=== PATIENT | female | born 1995 | race Hispanic/Latino ===

== ENCOUNTER 2017-02-10 09:04 | Emergency (ER) | payer SELFPAY ==
[2017-02-10] MEDS ORDERED: Ondansetron ODT 4 MG TAB ONE (09:25)
[2017-02-10 09:40] LABS: Bilirubin Negative (Negative); Blood, Urine Negative (Negative); Clarity CLOUDY (Clear); Glucose, Urine (Dipstick) Negative (Negative); Leukocyte Negative (Negative); Nitrite Negative (Negative); Protein, Urine (Dipstick) Negative (Neg-Trace); Specific Gravity, Urine 1.028 (1.002-1.036); Urobilinogen 0.2 mg/dL (0.2-1.0); pH, Urine 6.5 (5.0-9.0)
[2017-02-10 09:43] LABS: Pregnancy Test - Urine (BHCG) Negative (Negative); Pregu Control Background? CLEAR/WHITE (CLR/WHITE); Pregu Control Bar Appear? YES (CONTROL BAR); Specific Gravity 1.028 (1.002-1.036)
== END 2017-02-10 10:19 | disposition home or self-care (01) ==
LOC: ERS 09:04
DX: R19.7 Diarrhea, unspecified (principal); J45.909 Unspecified asthma, uncomplicated
CPT/HCPCS: 81003; 81025; 99284; Q0162

== ENCOUNTER 2017-02-12 06:41 | Emergency (ER) | payer SELFPAY ==
[2017-02-12 07:08] LABS: Bilirubin Negative (Negative); Blood, Urine Large (Negative); Clarity TURBID (Clear); Glucose, Urine (Dipstick) Negative (Negative); Leukocyte Moderate (Negative); Nitrite Negative (Negative); Protein, Urine (Dipstick) 300 mg/dL (Neg-Trace)
[2017-02-12 07:09] LABS: Bacteria/HPF None Seen HPF (None Seen); Hyaline Casts/LPF 4-6 HYALINE CAST LPF (0-3 Hyaline); Pathc Cast-AUWi Flag 1.68 (0-2.49); RBC/HPF GREATER THAN 50-TNTC HPF (0-3); Squamous Epithelial 0-3 HPF (0-3)
[2017-02-12 07:11] LABS: Pregnancy Test - Urine (BHCG) Negative (Negative)
[2017-02-12 07:12] LABS: Pregu Control Background? CLEAR/WHITE (CLR/WHITE); Pregu Control Bar Appear? YES (CONTROL BAR)
[2017-02-12] MEDS ORDERED: Phenazopyridine HCl 97.5 MG TABLET ONE (07:46)
[2017-02-12] MEDS ORDERED: Phenazopyridine HCl 97.5 MG TABLET PO SCH (08:00)
== END 2017-02-12 07:59 | disposition home or self-care (01) ==
LOC: ERS 06:41
DX: N39.0 Urinary tract infection, site not specified (principal); J45.909 Unspecified asthma, uncomplicated
CPT/HCPCS: 81003; 81015; 81025; 99284

== ENCOUNTER 2017-06-18 10:09 | Emergency (ER) | payer OTHER, SELFPAY ==
[2017-06-18 10:43] LABS: Bilirubin Negative (Negative); Blood, Urine Negative (Negative); Clarity CLEAR (Clear); Glucose, Urine (Dipstick) Negative (Negative); Leukocyte Negative (Negative); Nitrite Negative (Negative); Protein, Urine (Dipstick) Negative (Neg-Trace)
[2017-06-18 10:48] LABS: Pregnancy Test - Urine (BHCG) POSITIVE (Negative); Pregu Control Background? CLEAR/WHITE (CLR/WHITE); Pregu Control Bar Appear? YES (CONTROL BAR)
[2017-06-18 12:36] LABS: #Eosinphils 0.1 thou/uL (0.0-0.7); #Monocytes 0.6 thou/uL (0.11-0.59); #Neutrophils 5.8 thou/uL (1.40-6.50); %Basophils 0.4 % (0.0-1.0); %Lymphocytes 23.5 % (21.0-51.0); %Monocytes 7.3 % (0.0-10.0); %Neutrophils 67.8 % (42.0-75.0); Hemoglobin 12.3 g/dL (12.0-16.0); Mean Corpuscular HGB CONC 33.7 g/dL (32.0-36.0); Mean Corpuscular Hemoglobin 30.2 pg (27.0-31.0); Mean Corpuscular Volume 89.4 fl (81.0-99.0); Mean Platelet Volume 8.5 fL (7.4-10.4); Platelet Count 296 thou/uL (130-400); RBC Distribution Width 11.3 % (11.5-14.5); Red Blood Cell (RBC) Count 4.08 mill/uL (4.20-5.40); White Blood Cell (WBC) Count 8.6 thou/uL (4.8-10.8)
--- NOTE | 2017-06-18 13:29 | ULT ---
PELVIC ULTRASOUND: History Evaluate for ectopic . COMPARISON: None. TECHNIQUE: Transabdominal and endovaginal imaging of the pelvis is performed. Ovaries are interrogated with gra y scale, color flow, Doppler imaging, and spectral waveform analysis. FINDINGS: Uterus is identified, without myometrial masses. The uterus measures 5.0 x 6.0 x 7.9 cm. Within the endometrium, there is a gestational sac. Possible yolk sac is noted. No definite pole. Mean sac diameter is 1.04 cm corresponding to gestational age of 5 weeks 5 days. There is no evidence of free fluid. OVARIAN DOPPLER: Right and left ovary have a normal echotexture. The left ovary measures 2.9 x 1.8 x 1.3 cm. The rig ht ovary measures 2.2 x 2.9 x 2.1 cm. OVARIAN DOPPLER: Vascular flow to both ovaries. IMPRESSION: Gestational sac is noted within the endometrium. Yolk sac is identified. Findings likely represent an early intrauterine . Followup ultrasound and serial beta HCGs are recommended POS: [facility]
[2017-06-20 00:51] LABS: Chlamydia by PCR Not Detected (NotDetected); GC by PCR Not Detected (NotDetected)
== END 2017-06-18 14:10 | disposition home or self-care (01) ==
LOC: ERS 10:09
DX: O98.811 Other maternal infectious and parasitic diseases complicating pregnancy, first trimester (principal); B37.3 Candidiasis of vulva and vagina; O99.511 Diseases of the respiratory system complicating pregnancy, first trimester; J45.909 Unspecified asthma, uncomplicated; Z3A.01 Less than 8 weeks gestation of pregnancy
CPT/HCPCS: 36415; 76856; 81003; 81025; 84702; 85025; 86900; 86901; 87480; 87491; 87510; 87591; 87660

== ENCOUNTER 2017-07-04 19:21 | Emergency (ER) | payer MEDICAID, SELFPAY ==
[2017-07-04 19:48] LABS: #Basophils 0.1 thou/uL (0.0-0.2); #Eosinphils 0.2 thou/uL (0.0-0.7); #Lymphocytes 2.8 thou/uL (1.20-3.40); #Monocytes 0.8 thou/uL (0.11-0.59); #Neutrophils 6.7 thou/uL (1.40-6.50); %Basophils 0.7 % (0.0-1.0); %Eosinophils 2.1 % (0.0-10.0); %Lymphocytes 26.7 % (21.0-51.0); %Monocytes 7.2 % (0.0-10.0); %Neutrophils 63.3 % (42.0-75.0); Hemoglobin 11.9 g/dL (12.0-16.0); Mean Corpuscular HGB CONC 34.8 g/dL (32.0-36.0); Mean Corpuscular Hemoglobin 30.8 pg (27.0-31.0); Mean Corpuscular Volume 88.5 fl (81.0-99.0); Mean Platelet Volume 8.2 fL (7.4-10.4); Platelet Count 264 thou/uL (130-400); Red Blood Cell (RBC) Count 3.86 mill/uL (4.20-5.40); White Blood Cell (WBC) Count 10.6 thou/uL (4.8-10.8)
[2017-07-04 19:51] LABS: Acanthocytes SLIGHT = 1-5 cells (100X) (None Seen); Anisocytosis SLIGHT = 6-15 cells (100X) (0-5/hpf); Ovalocytes SLIGHT = 2-5 cells (100X) (0-1/hpf); Target Cells SLIGHT = 2-5 cells (100X) (0-1/hpf); Tear Drops SLIGHT = 2-5 cells (100X) (0-1/hpf)
--- NOTE | 2017-07-04 20:39 | ULT ---
TRANSVAGINAL PELVIC ULTRASOUND WITH FREED SCALE AND DOPPLER COLOR FLOW IMAGING: CLINICAL HISTORY: Intrauterine gestation with vaginal discharge. Pelvic pain. COMPARISON: Reference made to a 06/18/2017 exam. FINDINGS: There is evidence of a gestational sac with an internal pole and yolk sac. On the basis of son ographic imaging, this corresponds to an approximately 8 week 2 day gestational age. cardiac a ctivity is present, documented at 163 beats per minute. There is a wedge-shaped focus of decreased e chogenicity adjacent to the gestational sac, which is compatible with a focal area of subchorionic he morrhage. Doppler evaluation reveals flow to each ovary. IMPRESSION: 1. Early live intrauterine gestation. 2. Subchorionic hemorrhage is present. Recommend continued imaging followup, as well as clinical assessment. POS: [facility]
[2017-07-04 21:27] LABS: Bilirubin Negative (Negative); Blood, Urine Negative (Negative); Clarity CLEAR (Clear); Glucose, Urine (Dipstick) Negative (Negative); Leukocyte Negative (Negative); Nitrite Negative (Negative); Protein, Urine (Dipstick) Negative (Neg-Trace); Specific Gravity, Urine 1.021 (1.002-1.036)
[2017-07-06 04:22] LABS: Chlamydia by PCR Not Detected (NotDetected); GC by PCR Not Detected (NotDetected)
== END 2017-07-05 03:35 | disposition home or self-care (01) ==
LOC: ERS 19:21
DX: O20.0 Threatened abortion (principal); O99.511 Diseases of the respiratory system complicating pregnancy, first trimester; J45.909 Unspecified asthma, uncomplicated; Z3A.01 Less than 8 weeks gestation of pregnancy
CPT/HCPCS: 36415; 76856; 81003; 84702; 85025; 86900; 86901; 87480; 87491; 87510; 87591; 87660; 90384; 96372

== ENCOUNTER 2017-09-02 10:00 | Emergency (ER) | payer MEDICAID, OTHER ==
[2017-09-02 10:42] LABS: Bilirubin Negative (Negative); Blood, Urine Negative (Negative); Clarity CLEAR (Clear); Glucose, Urine (Dipstick) Negative (Negative); Leukocyte Negative (Negative); Nitrite Negative (Negative); Protein, Urine (Dipstick) Negative (Neg-Trace); Specific Gravity, Urine 1.018 (1.002-1.036); pH, Urine 7.5 (5.0-9.0)
[2017-09-02 11:09] LABS: #Eosinphils 0.1 thou/uL (0.0-0.7); #Lymphocytes 1.3 thou/uL (1.20-3.40); #Monocytes 0.6 thou/uL (0.11-0.59); #Neutrophils 10.2 thou/uL (1.40-6.50); %Basophils 0.1 % (0.0-1.0); %Eosinophils 0.5 % (0.0-10.0); %Lymphocytes 10.7 % (21.0-51.0); %Neutrophils 83.8 % (42.0-75.0); Hemoglobin 12.1 g/dL (12.0-16.0); Mean Corpuscular HGB CONC 34.7 g/dL (32.0-36.0); Mean Corpuscular Hemoglobin 30.8 pg (27.0-31.0); Mean Corpuscular Volume 88.7 fL (78.0-98.0); Mean Platelet Volume 8.3 fL (7.4-10.4); Platelet Count 251 thou/uL (130-400); RBC Distribution Width 11.7 % (11.5-14.5); Red Blood Cell (RBC) Count 3.94 mill/uL (4.20-5.40); White Blood Cell (WBC) Count 12.2 thou/uL (4.8-10.8)
--- NOTE | 2017-09-02 11:52 | ULT ---
ULTRASOUND OBSTETRICAL COMPLETE: Date: 09/02/17 HISTORY: 21-year-old female with abdominal pain. FINDINGS: number: Trevino. lie: Cephalic. Maternal cervix: 3.5 cm long and closed. Placenta: Posterofundal. No abruption or previa. There is a focal bulge in the anterior myometrium indenting the gestational sac. Amniotic fluid volume: Subjectively normal. heart rate: 141 bpm The following anatomy is visualized, with no evidence of anomalies: Head, four chamber heart, stomach, kidneys, cord insertion, and bladder. The rest of the anatomy is not visualized in detail. biometry: Head circumference (HC): 14.6 cm 17w 5d Biparietal diameter (BPD): 4.0 cm 18w 1d Abdominal circumference (AC): 12.9 cm 18w 3d Femur length (FL): 2.6 cm 17w 5d Average ultrasound age (AUA): 17w 5d Estimated date of delivery (CRIS): 02/05/18 Last menstrual period (LMP): 05/05/2017. Gestational age by LMP: 17w, 1d. Estimated weight (EFW): 223 g +/- 33 g. IMPRESSION: 1. Live second trimester intrauterine gestation. 2. Estimated gestational age of 17 weeks, 5 days. 3. Cephalic lie. 4. Focal bulge in the anterior myometrium. This may be a Lev-Story contraction. It is less likely to represent a uterine fibroid. Suggest follow-up obstetrical ultrasound later in the second trimest er. SHARIF Funez POS: [facility]
== END 2017-09-02 12:40 | disposition home or self-care (01) ==
LOC: ERS 10:00
DX: O99.89 Other specified diseases and conditions complicating pregnancy, childbirth and the puerperium (principal); R10.9 Unspecified abdominal pain; Z3A.17 17 weeks gestation of pregnancy
CPT/HCPCS: 36415; 76815; 81003; 84702; 85025; 86900; 86901; 87480; 87510; 87660

== ENCOUNTER 2017-09-29 02:13 | Day surgery (SDC) | payer OTHER ==
[2017-09-29 02:43] VITALS: BMI 30.9
[2017-09-29 02:44] VITALS: BP 114/61; TEMP 98.5
--- NOTE | 2017-09-29 03:23 | PDOC.LDHP ---
Labor and Delivery H&P Chief complaint: other (UTI symptoms and abdominal pressure) HPI: 21 y/o at 21w0d, patient of Dr. Olson, presents with abdominal pressure , urinary urgency and dysuria. Is being treated for BV with Flagyl. Having spotting today but denies heavy bleeding. Has had some constant low back pain today. Denies LOF or decreased FM. ROS neg for HEENT, cv, pulm, gi, gu, neuro, psych, skin, musculoskeletal, or constitutional symptoms other than mentioned above. 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.) Extremeties: no edema FHT: category 1 (140s) [place] contractions every: None - Vaginal Exam cm dilated: 0 (thick, firm; no blood noted on glove) Effacement: 0% Station: -3 - OB Labs Blood type: O RH: negative Additional Labs: Laboratory Results - last 24 hr 09/29/17 03:05 Urine Color Red H Urine Clarity TURBID Urine pH 6.5 Ur Specific [place] 1.023 Urine Protein 300 H Urine Glucose (UA) Negative Urine Ketones Trace H Urine Blood Large H Urine Nitrite Negative Urine Bilirubin Negative Urine Urobilinogen 0.2 Ur Leukocyte Esterase Large H Urine RBC GREATER THAN 50-TNTC H Urine WBC Greater Than 50-TNTC H Ur Squamous Epith Cells 7-10 H Ur Transition Epith Cell NONE SEEN Ur Renal Epithelial Cell None Seen Urine Bacteria None Seen Hyaline Casts >50 HYALINE CAST H Other Casts None Seen - Assessment 21 y/o at 21w0d with UTI. status reassuring with +FHTs. - Plan -: D/c home with precautions. Given Rx for macrobid. Advised to keep all appointments and call clinic if symptoms don't improve.
[2017-09-29 03:29] LABS: Bilirubin Negative (Negative); Blood, Urine Large (Negative); Clarity TURBID (Clear); Glucose, Urine (Dipstick) Negative (Negative); Leukocyte Large (Negative); Nitrite Negative (Negative); Protein, Urine (Dipstick) 300 mg/dL (Neg-Trace); Specific Gravity, Urine 1.023 (1.002-1.036); Urobilinogen 0.2 mg/dL (0.2-1.0); pH, Urine 6.5 (5.0-9.0)
[2017-09-29 03:32] LABS: Bacteria/HPF None Seen HPF (None Seen)
[2017-09-29 03:39] LABS: Hyaline Casts/LPF >50 HYALINE CAST LPF (0-3 Hyaline)
[2017-09-29 03:40] LABS: Pathc Cast-AUWi Flag 42.92 (0-2.49); Yeast-AUWi Flag 266.5 (0-25.0)
[2017-09-29 03:50] LABS: RBC/HPF GREATER THAN 50-TNTC HPF (0-3)
[2017-09-29 03:51] LABS: Other Casts/LPF None Seen LPF (0-3 Hyaline); Renal Epithelial None Seen HPF (0-3); Transitional Epithelial NONE SEEN HPF (0-3)
== END 2017-09-29 04:11 | disposition home or self-care (01) ==
LOC: L&D/OP 02:13
PROVIDERS: ATTEND Obstetrics & Gynecology
DX: O23.42 Unspecified infection of urinary tract in pregnancy, second trimester (principal); Z3A.21 21 weeks gestation of pregnancy
CPT/HCPCS: 81001; 87077; 87086; 99283

== ENCOUNTER 2017-11-10 13:39 | Emergency (ER) | payer OTHER ==
[2017-11-10] MEDS ORDERED: Fluorescein Opthalmic Strip ONE (14:55)
[2017-11-10] MEDS ORDERED: Proparacaine 0.5% Opth 15 ML BOT ONE (14:55)
== END 2017-11-10 15:55 | disposition home or self-care (01) ==
LOC: ERS 13:39
DX: B30.9 Viral conjunctivitis, unspecified (principal); J45.909 Unspecified asthma, uncomplicated
CPT/HCPCS: 99283

== ENCOUNTER 2018-02-02 00:09 | Inpatient (IN) | payer OTHER ==
[2018-02-02] MEDS ORDERED: Butorphanol Tartrate 1 MG/ML VIAL SLOW IVP PRN (00:51)
[2018-02-02] MEDS ORDERED: Ibuprofen 800 MG TAB PO PRN (00:51)
[2018-02-02] MEDS ORDERED: NS w/ Oxytocin 10 units 500 ML IV SCH (00:51)
[2018-02-02] MEDS ORDERED: Acetaminophen 500 MG TAB PO PRN (00:51)
[2018-02-02] MEDS ORDERED: Docusate 100 MG CAP PO PRN (00:51)
[2018-02-02] MEDS ORDERED: Misoprostol 200 MCG TAB PR PRN (00:51)
[2018-02-02] MEDS ORDERED: Promethazine HCl 25 MG/ML VIAL IM PRN ×2 (00:51→07:52)
[2018-02-02] MEDS ORDERED: Diphenoxylate HCl/Atropine Tablet PO PRN ×2 (00:51)
[2018-02-02] MEDS ORDERED: Lidocaine 1% (PF) 30 ML VIAL SC PRN (00:51)
[2018-02-02] MEDS ORDERED: Zolpidem Tartrate 5 MG TAB PO PRN (00:51)
[2018-02-02] MEDS ORDERED: Ondansetron PF 4 MG/2 ML Vial IVP PRN ×2 (00:51→07:52)
[2018-02-02] MEDS ORDERED: HYDROcodone/Acetaminophen 5/325 mg Tablet PO PRN (00:51)
[2018-02-02 01:11] VITALS: BMI 33.9
[2018-02-02] MEDS: Lactated Ringer's 1,000 ML IV SCH ×3 (01:15→17:03)
[2018-02-02] MEDS ORDERED: Penicillin G Potassium 5 MILL.UNITS VIAL ONE (01:33)
[2018-02-02] MEDS ORDERED: Penicillin G Potassium 5 MILL.UNITS in Sodium Chloride 0.9% 100 ML IVPB SCH (01:45)
[2018-02-02] MEDS: Misoprostol 100 MCG TAB VAG SCH ×4 (01:50→23:44)
[2018-02-02 01:56] LABS: Hemoglobin 10.6 g/dL (12.0-16.0); Mean Corpuscular HGB CONC 34.1 g/dL (32.0-36.0); Mean Corpuscular Hemoglobin 28.7 pg (27.0-31.0); Mean Corpuscular Volume 84.1 fL (78.0-98.0); Mean Platelet Volume 8.4 fL (7.4-10.4); Platelet Count 296 thou/uL (130-400); RBC Distribution Width 12.2 % (11.5-14.5); White Blood Cell (WBC) Count 10.6 thou/uL (4.8-10.8)
[2018-02-02 02:05] LABS: HBSAg Index 0.22 S/CO (0-0.99); Hep B Surf Ag Non-Reactive S/CO (NonReactive)
[2018-02-02] MEDS: Penicillin G 2.5 MILL.units 2.5 MILL.UNITS in Premix Bag 1 BAG IVPB SCH ×4 (05:44→23:44)
[2018-02-02] MEDS ORDERED: Fentanyl 4 mcg/Bup 0.1% Cadd 100 ML ONE ×2 (07:11→07:12)
[2018-02-02 07:27] LABS: Syphilis Antibody Nonreactive (Nonreactive); Syphilis Antibody Index 0.08 S/CO (<1.00 Non-Reactive)
[2018-02-02] MEDS ORDERED: Naloxone HCl 0.4 mg/ml Vial IVP PRN ×2 (07:52)
[2018-02-02] MEDS ORDERED: Eucerin (Mineral Oil/Petrolatum,White) 30 gm Jar TOP PRN (07:52)
[2018-02-02] MEDS ORDERED: Lactated Ringer's 500 ML IV PRN (07:52)
[2018-02-02] MEDS ORDERED: Acetaminophen 325 MG TAB PO PRN (07:52)
[2018-02-02] MEDS ORDERED: ePHEDrine/0.9% NaCl/PF SYRINGE 50 mg/10 ml SLOW IVP PRN (07:52)
[2018-02-02] MEDS ORDERED: diphenhydrAMINE 50 MG/ML VIAL IVP PRN (07:52)
[2018-02-02] MEDS ORDERED: Fentanyl 4 mcg/Bupivacaine 0.1% Cassette 100 ML EPIDURAL SCH (08:00)
[2018-02-02] MEDS ORDERED: Communication Order-Pharmacy FS SCH (08:00)
[2018-02-02] MEDS: NS / Oxytocin 40 units/1000ml 1,000 ML IV PRN ×2 (12:50→14:07)
[2018-02-02] MEDS ORDERED: Bupivacaine/Epinephrine 0.25% 30 ML VIAL ONE (15:00)
[2018-02-02] MEDS ORDERED: Bisacodyl 10 MG SUPP PR PRN (19:30)
[2018-02-02] MEDS ORDERED: NS / Oxytocin 40 units/1000ml 1,000 ML IV SCH (19:30)
[2018-02-02] MEDS ORDERED: Milk Of Magnesia 30 ML UDCUP PO PRN (19:30)
[2018-02-02] MEDS ORDERED: Acetaminophen/Codeine 30-300mg Tablet PO PRN (20:00)
[2018-02-02] MEDS: Acetaminophen/Codeine 30-300mg Tablet PO PRN (20:03)
[2018-02-02] MEDS: Docusate Calcium (SURFAK) 240 MG CAP PO SCH (20:04)
[2018-02-02] MEDS: Ibuprofen 800 MG TAB PO SCH (21:27)
[2018-02-02] MEDS ORDERED: Morphine 2 MG/ML SYRINGE SLOW IVP PRN (22:49)
[2018-02-02] MEDS: Adacel (T-DAP) 0.5 ML SYRINGE IM SCH (23:47)
[2018-02-03] MEDS: Misoprostol 100 MCG TAB VAG SCH ×3 (03:52→09:30)
[2018-02-03] MEDS: Lactated Ringer's 1,000 ML IV SCH ×3 (03:52→16:58)
[2018-02-03] MEDS: Penicillin G 2.5 MILL.units 2.5 MILL.UNITS in Premix Bag 1 BAG IVPB SCH ×4 (03:53→23:45)
[2018-02-03] MEDS: Ibuprofen 800 MG TAB PO SCH ×3 (05:05→21:36)
[2018-02-03] MEDS: Ferrous Sulfate 325 MG TAB PO SCH ×2 (09:30→16:58)
[2018-02-03] MEDS: Acetaminophen/Codeine 30-300mg Tablet PO PRN (09:54)
[2018-02-03] MEDS: Docusate Calcium (SURFAK) 240 MG CAP PO SCH ×2 (09:55→21:36)
[2018-02-03] MEDS: Adacel (T-DAP) 0.5 ML SYRINGE IM SCH (17:00)
[2018-02-04] MEDS: Acetaminophen/Codeine 30-300mg Tablet PO PRN ×2 (01:56→12:55)
[2018-02-04] MEDS: Lactated Ringer's 1,000 ML IV SCH ×2 (06:27→09:09)
[2018-02-04] MEDS: Penicillin G 2.5 MILL.units 2.5 MILL.UNITS in Premix Bag 1 BAG IVPB SCH ×2 (06:27→12:54)
[2018-02-04] MEDS: Ibuprofen 800 MG TAB PO SCH ×2 (07:40→14:03)
[2018-02-04] MEDS: Misoprostol 100 MCG TAB VAG SCH ×3 (07:41→12:54)
[2018-02-04] MEDS: Docusate Calcium (SURFAK) 240 MG CAP PO SCH (09:08)
[2018-02-04] MEDS: Ferrous Sulfate 325 MG TAB PO SCH (09:09)
[2018-02-04 09:41] VITALS: BP 110/57; TEMP 97.7
== END 2018-02-04 14:30 | disposition home or self-care (01) | DRG 807 ==
LOC: L&D 00:09 → 3SW 15:47
PROVIDERS: ADMIT Obstetrics & Gynecology; ATTEND Obstetrics & Gynecology
PROC: 3E0P7VZ Introduction of Hormone into Female Reproductive, Via Natural or Artificial Opening (ICD-10-PCS; principal; 2018-02-02)
PROC: 10E0XZZ Delivery of Products of Conception, External Approach (ICD-10-PCS; 2018-02-02)
PROC: 0UQMXZZ Repair Vulva, External Approach (ICD-10-PCS; 2018-02-02)
DX: O98.82 Other maternal infectious and parasitic diseases complicating childbirth (principal); Z37.0 Single live birth; O24.429 Gestational diabetes mellitus in childbirth, unspecified control; B95.1 Streptococcus, group B, as the cause of diseases classified elsewhere; Z3A.39 39 weeks gestation of pregnancy; O71.82 Other specified trauma to perineum and vulva
CPT/HCPCS: 51702; 85027; 86780; 86850; 86900; 86901; 87340; J2270; J2540

== ENCOUNTER 2018-02-05 20:40 | Inpatient (IN) | payer OTHER ==
[2018-02-05 22:00] LABS: #Eosinphils 0.3 thou/uL (0.0-0.7); #Lymphocytes 1.8 thou/uL (1.20-3.40); #Monocytes 0.6 thou/uL (0.11-0.59); #Neutrophils 6.9 thou/uL (1.40-6.50); %Basophils 0.4 % (0.0-1.0); %Eosinophils 3.1 % (0.0-10.0); %Lymphocytes 18.6 % (21.0-51.0); %Monocytes 6.4 % (0.0-10.0); %Neutrophils 71.6 % (42.0-75.0); Hemoglobin 10.9 g/dL (12.0-16.0); Mean Corpuscular HGB CONC 33.9 g/dL (32.0-36.0); Mean Corpuscular Hemoglobin 28.8 pg (27.0-31.0); Mean Corpuscular Volume 85.1 fL (78.0-98.0); Mean Platelet Volume 7.8 fL (7.4-10.4); Platelet Count 299 thou/uL (130-400); RBC Distribution Width 12.3 % (11.5-14.5); Red Blood Cell (RBC) Count 3.78 mill/uL (4.20-5.40); White Blood Cell (WBC) Count 9.7 thou/uL (4.8-10.8)
[2018-02-05 22:20] LABS: ALT (SGPT) 23 U/L (8-55); AST (SGOT) 19 U/L (5-34); Albumin 3.1 g/dL (3.5-5.0); Alkaline Phosphatase 138 U/L (40-150); Anion Gap 12 mmol/L (10-20); BUN (Urea Nitrogen) 10 mg/dL (7.0-18.7); Bilirubin, Total 0.3 mg/dL (0.2-1.2); Calc. Creatinine Clearance 0 mL/min (70-130); Calcium 8.9 mg/dL (7.8-10.44); Carbon Dioxide 21 mmol/L (22-29); Chloride 107 mmol/L (98-107); Estimated GFR-MDRD Greater than 90; Globulin 3.4 g/dL (2.4-3.5); Glucose 87 mg/dL (70-105); Magnesium 1.8 mg/dL (1.6-2.6); Potassium 3.4 mmol/L (3.5-5.1); Protein, Total 6.5 g/dL (6.0-8.3); Sodium 137 mmol/L (136-145); Uric Acid 3.4 mg/dL (2.6-6.0)
[2018-02-05] MEDS ORDERED: diphenhydrAMINE 50 MG/ML VIAL ONE (22:59)
[2018-02-05] MEDS ORDERED: Metoclopramide HCl 10 MG/2 ML VIAL ONE (22:59)
--- NOTE | 2018-02-05 23:01 | PDOC.LDHP ---
Labor and Delivery H&P Chief complaint: other (TAYLOR s.p 02/02/[address] olson) HPI: Patient is currentlt in the ED with TAYLOR, thought by Dr Olson (per ED physician report) to be post epidural CSF related leakage. Anesthesia has requested the patient come to L&D for overnight hydration as they cannot do the blood patch tonight, but will do it in AM. PIH workup in ED was "normal labs" per Dr Huynh OB History Details: S/P 02/02/18 Current medications: pre- vitamins Allergies/Adverse Reactions: Allergies Allergy/AdvReac Type Severity Reaction Status Date / Time No Known Allergies Allergy Verified 02/02/18 01:05 - Physical Exam Vital signs reviewed and normal: yes Abnormal vital signs: Afebrile, inital BP in ED was 140 systolic...but thought to be pain related - Assessment patient in the ED with suspected CSF leak s/p GUY...anesthesia requested inhouse hydration for blood patch in AM - Plan Plan: observation in L&D (Serial BPs, hydration, anesthesia to see patient in AM.)
[2018-02-05] MEDS ORDERED: Promethazine HCl 25 MG/ML VIAL IM/IV PRN (23:07)
[2018-02-06] MEDS: Lactated Ringer's 1,000 ML IV SCH ×2 (01:30→09:43)
[2018-02-06] MEDS: Butorphanol Tartrate 1 MG/ML VIAL SLOW IVP PRN ×2 (02:51→09:36)
--- NOTE | 2018-02-06 07:52 | PDOC.EVN ---
Event Note - Event Note Event Note: Blood patch pending per anesthesia. Dr Olson aware and asked that anesthesia and oncoming OBGYN do final disposition. I reviewed BPs this AM..wnl. Anesthesia eval pending...I have called and reminded the floor nurses on . Anesthesia consult requested.
[2018-02-06] MEDS ORDERED: Prenatal Vitamin 1 TAB PO SCH (09:00)
[2018-02-06 12:46] VITALS: BP 128/76; TEMP 97.6
--- NOTE | 2018-02-07 02:59 | DIS ---
DATE OF ADMISSION: 02/05/2018 DATE OF DISCHARGE: 02/06/2018 PRIMARY OB: Dr. Galileo Olson. ADMITTING DIAGNOSIS: headache. DISCHARGE DIAGNOSIS: Spinal headache. CONSULTATION: Anesthesia. PROCEDURE: Blood patch. HOSPITAL COURSE: The patient is a 22-year-old female who is day 4, status post a term spontaneous vaginal delivery by her primary OB, Dr. Galileo Olson, who re-presented to the emergency room for a persistent headache. The patient was seen and evaluated for PIH, which was negative and then was admitted to observation with plans for Anesthesia to see her for a potential blood patch. During her stay, she was seen by Anesthesia and received a blood patch which very quickly drastically reduced the pain from her headache from a 10 to 1. At the time of my evaluation, the patient was walking and feeling much better. The patient had just received the blood patch from Anesthesia. The patient is comfortable to be discharged to home. PHYSICAL EXAMINATION: VITAL SIGNS: At time of discharge, blood pressure is 128/76, temperature 97.6, pulse of 88, respiratory rate of 20, and O2 saturation 95% on room air. GENERAL: She appeared to be in no acute distress. She is alert, oriented, cooperative, pleasant to interact with. The patient was discharged to home. To resume her home medications provided by Dr. Olson, which included Tylenol No. 3 and ibuprofen per the patient report. The patient has also been given instructions to follow up by phone with Dr. Olson on Tuesday to see when he would like to see her next. Job ID: [id number]
== END 2018-02-06 15:40 | disposition home or self-care (01) | DRG 776 ==
LOC: ERS 20:40 → 3SW 23:12
PROVIDERS: ADMIT Obstetrics & Gynecology; ATTEND Obstetrics & Gynecology
PROC: 3E0R3GC Introduction of Other Therapeutic Substance into Spinal Canal, Percutaneous Approach (ICD-10-PCS; principal; 2018-02-06)
DX: O89.4 Spinal and epidural anesthesia-induced headache during the puerperium (principal)
CPT/HCPCS: 36415; 80053; 83735; 84550; 85025; 96365; 96366; 96376; J0595; J1200; J2765

== ENCOUNTER 2018-07-16 11:11 | Emergency (ER) | payer OTHER | END 2018-07-16 11:30 | disposition home or self-care (01) | LOC: ERS 11:11 | DX: R50.9 Fever, unspecified (principal); J45.909 Unspecified asthma, uncomplicated | CPT/HCPCS: 99282 ==

== ENCOUNTER 2018-09-04 09:37 | Emergency (ER) | payer SELFPAY | END 2018-09-04 10:49 | disposition home or self-care (01) | LOC: ERS 09:37 | DX: J02.9 Acute pharyngitis, unspecified (principal); J45.909 Unspecified asthma, uncomplicated | CPT/HCPCS: 87081; 87430; 99283 ==

== ENCOUNTER 2018-10-16 17:03 | Emergency (ER) | payer MEDICAID, SELFPAY ==
--- NOTE | 2018-10-16 17:33 | RAD ---
RADIOGRAPH LUMBAR SPINE 3 VIEWS: DATE: 10/16/2018 HISTORY: Lumbar spine trauma. FINDINGS: Vertebral body heights are maintained. There is no evidence of fracture. IMPRESSION: No evidence of compression fracture.
[2018-10-16] MEDS ORDERED: Ibuprofen 800 MG TAB ONE (17:50)
[2018-10-16] MEDS ORDERED: Acetaminophen 500 MG TAB ONE (17:50)
== END 2018-10-16 18:17 | disposition home or self-care (01) ==
LOC: ERS 17:03
DX: S39.012A Strain of muscle, fascia and tendon of lower back, initial encounter (principal); J45.909 Unspecified asthma, uncomplicated; V43.52XA Car driver injured in collision with other type car in traffic accident, initial encounter
CPT/HCPCS: 72100

== ENCOUNTER 2019-02-04 21:43 | Emergency (ER) | payer MEDICAID ==
[2019-02-04] MEDS ORDERED: Dexamethasone 10 MG/ML VIAL ONE (22:17)
== END 2019-02-04 22:28 | disposition home or self-care (01) ==
LOC: ERS 21:43
DX: J02.8 Acute pharyngitis due to other specified organisms (principal); J45.909 Unspecified asthma, uncomplicated
CPT/HCPCS: 87081; 87430; 99283; J1100

== ENCOUNTER 2019-04-10 11:13 | Emergency (ER) | payer MEDICAID, SELFPAY ==
[2019-04-10 12:25] LABS: HBSAB Concentration 2.03 mIU/mL; HIV (1/2) Antibody/Antigen Non-Reactive (NonReactive); HIV 1/2 INDEX 0.11 S/CO (<1.00); Hep B Surf AB Non-Reactive (NonReactive); Hep C IgG Ab Non-Reactive (NonReactive)
== END 2019-04-10 12:02 | disposition home or self-care (01) ==
LOC: ERS 11:13
DX: Z77.21 Contact with and (suspected) exposure to potentially hazardous body fluids (principal)
CPT/HCPCS: 36415; 86706; 86803; 87389; 99283

== ENCOUNTER 2019-12-18 18:53 | Emergency (ER) | payer SELFPAY ==
[2019-12-18 20:32] LABS: Bacteria/HPF None Seen HPF (None Seen); Bilirubin 1+ (Negative); Blood, Urine Negative (Negative); Clarity Clear (Clear); Glucose, Urine (Dipstick) Normal (Negative); Ketone, Urine 20 mg/dL (Negative); Leukocyte Negative Leu/uL (Negative); Nitrite 1+ (Negative); Protein, Urine (Dipstick) 20 mg/dL (Neg-Trace); RBC/HPF 0-3 HPF (0-3); Specific Gravity, Urine 1.029 (1.002-1.036)
[2019-12-18 20:33] LABS: Pregnancy Test - Urine (BHCG) Negative (Negative); Pregu Control Background? CLEAR/WHITE (CLR/WHITE); Pregu Control Bar Appear? YES (CONTROL BAR); Specific Gravity 1.029 (1.002-1.036)
[2019-12-18] MEDS ORDERED: Dexamethasone 10 MG/ML VIAL ONE (21:39)
[2019-12-19 11:00] LABS: SARS-CoV-2 MS2 Positive; SARS-CoV-2 N Gene Negative; SARS-CoV-2 S Gene Negative; SARS-CoV-2 by NAA Not Detected (NotDetected); SARS-CoV-2 orf1ab Negative
== END 2019-12-18 21:43 | disposition home or self-care (01) ==
LOC: ERS 18:53
DX: N39.0 Urinary tract infection, site not specified (principal); J02.9 Acute pharyngitis, unspecified; J06.9 Acute upper respiratory infection, unspecified; Z20.828 Contact with and (suspected) exposure to other viral communicable diseases; J45.909 Unspecified asthma, uncomplicated
CPT/HCPCS: 81003; 81015; 81025; 87081; 87430; 87635; 99283; J1100; U0003

== ENCOUNTER 2020-08-11 09:09 | Emergency (ER) | payer MEDICAID, SELFPAY ==
[2020-08-11 10:37] LABS: SARS-CoV-2 NAA Rapid Test DETECTED (NotDetected)
== END 2020-08-11 10:08 | disposition home or self-care (01) ==
LOC: ERS 09:09
DX: U07.1 COVID-19 (principal); J45.909 Unspecified asthma, uncomplicated
CPT/HCPCS: 0240U; 99283

== ENCOUNTER 2021-05-17 21:58 | Emergency (ER) | payer SELFPAY ==
[~2021-05-17 21:58] MED LIST: Iopamidol-370 76% 500 ML 1 ML ONE
[2021-05-17 22:28] LABS: #Eosinphils 0.1 thou/uL (0.0-0.7); #Monocytes 0.9 thou/uL (0.11-0.59); #Neutrophils 8.2 thou/uL (1.40-6.50); %Eosinophils 0.5 % (0.0-10.0); %Lymphocytes 18.3 % (21.0-51.0); %Monocytes 7.7 % (0.0-10.0); %Neutrophils 73.5 % (42.0-75.0); Mean Corpuscular HGB CONC 34.4 g/dL (32.0-36.0); Mean Corpuscular Hemoglobin 31.1 pg (27.0-31.0); Mean Corpuscular Volume 90.3 fL (78.0-98.0); Mean Platelet Volume 8.2 fL (7.4-10.4); Platelet Count 323 thou/uL (130-400); RBC Distribution Width 11.2 % (11.5-14.5); Red Blood Cell (RBC) Count 4.19 mill/uL (4.20-5.40); White Blood Cell (WBC) Count 11.1 thou/uL (4.8-10.8)
[2021-05-17 22:50] LABS: ALT (SGPT) 20 U/L (8-55); AST (SGOT) 14 U/L (5-34); Albumin 4.4 g/dL (3.5-5.0); Alkaline Phosphatase 83 U/L (40-110); Anion Gap 14 mmol/L (10-20); BUN (Urea Nitrogen) 8 mg/dL (7.0-18.7); Bilirubin, Total 0.7 mg/dL (0.2-1.2); Calc. Creatinine Clearance 0 mL/min (70-130); Carbon Dioxide 19 mmol/L (22-29); Chloride 105 mmol/L (98-107); Globulin 3.2 g/dL (2.4-3.5); Glucose 126 mg/dL (70-105); Lipase 13 U/L (8-78); Potassium 3.2 mmol/L (3.5-5.1); Protein, Total 7.6 g/dL (6.0-8.3); Sodium 135 mmol/L (136-145)
[2021-05-17] MEDS ORDERED: Ondansetron PF 4 MG/2 ML Vial ONE (22:58)
[2021-05-17] MEDS ORDERED: Morphine 4 MG/ML VIAL ONE (22:58)
[2021-05-17 23:00] LABS: BHCG - Serum Negative (NEGATIVE); Pregs Control Background? CLEAR/WHITE (CLR/WHITE); Pregs Control Bar Appear? YES (CONTROL BAR)
[2021-05-18 00:18] LABS: Bilirubin Negative (Negative); Blood, Urine Negative (Negative); Clarity Clear (Clear); Glucose, Urine (Dipstick) Normal (Negative); Ketone, Urine Trace mg/dL (Negative); Leukocyte Negative Leu/uL (Negative); Nitrite Negative (Negative); Protein, Urine (Dipstick) Negative (Neg-Trace); Urobilinogen Normal mg/dL (Less than 2)
[2021-05-18 00:20] LABS: Specific Gravity, Urine Greater than 1.060 (1.002-1.036)
== END 2021-05-18 00:49 | disposition home or self-care (01) ==
LOC: ERS 21:58
DX: R10.84 Generalized abdominal pain (principal); R10.817 Generalized abdominal tenderness; J45.909 Unspecified asthma, uncomplicated
CPT/HCPCS: 36415; 74177; 80053; 81003; 83690; 84703; 85025; 93005; 96374; 96375; J2270; J2405; Q9967

== ENCOUNTER 2022-02-23 18:11 | Emergency (ER) | payer SELFPAY | END 2022-02-23 21:32 | disposition home or self-care (01) | LOC: ERS 18:11 | DX: J10.1 Influenza due to other identified influenza virus with other respiratory manifestations (principal) | CPT/HCPCS: 71045; 87804 ==

== ENCOUNTER 2022-07-26 20:55 | Emergency (ER) | payer SELFPAY ==
[2022-07-26 21:32] LABS: #Eosinphils 0.2 thou/uL (0.0-0.7); #Monocytes 0.6 thou/uL (0.11-0.59); #Neutrophils 6.2 thou/uL (1.40-6.50); %Basophils 0.3 % (0.0-1.0); %Eosinophils 1.5 % (0.0-10.0); %Lymphocytes 32.4 % (21.0-51.0); %Monocytes 5.9 % (0.0-10.0); %Neutrophils 59.5 % (42.0-75.0); Hemoglobin 12.6 g/dL (12.0-16.0); Mean Corpuscular HGB CONC 33.9 g/dL (32.0-36.0); Mean Corpuscular Hemoglobin 30.4 pg (27.0-31.0); Mean Corpuscular Volume 89.9 fl (78.0-98.0); Mean Platelet Volume 10.8 fL (7.4-10.4); Platelet Count 305 10x3/uL (130-400); RBC Distribution Width 11.7 % (11.5-14.5); Red Blood Cell (RBC) Count 4.14 mill/uL (4.20-5.40); White Blood Cell (WBC) Count 10.4 10x3/uL (4.8-10.8)
[2022-07-26 21:54] LABS: ALT (SGPT) 28 U/L (8-55); AST (SGOT) 18 U/L (5-34); Albumin 3.9 g/dL (3.5-5.0); Alkaline Phosphatase 72 U/L (40-110); Anion Gap 9 mmol/L (10-20); BUN (Urea Nitrogen) 11 mg/dL (7.0-18.7); Bilirubin, Total 0.2 mg/dL (0.2-1.2); Calc. Creatinine Clearance 0 mL/min (70-130); Calcium 8.9 mg/dL (7.8-10.44); Carbon Dioxide 25 mmol/L (22-29); Chloride 108 mmol/L (98-107); Estimated GFR 119; Globulin 2.6 g/dL (2.4-3.5); Glucose 99 mg/dL (70-105); Potassium 3.6 mmol/L (3.5-5.1); Protein, Total 6.5 g/dL (6.0-8.3); Sodium 138 mmol/L (136-145)
[2022-07-26 21:59] LABS: BHCG - Serum Negative (NEGATIVE); Pregs Control Background? CLEAR/WHITE (CLR/WHITE); Pregs Control Bar Appear? YES (CONTROL BAR)
== END 2022-07-26 22:43 | disposition home or self-care (01) ==
LOC: ERS 20:55
DX: R42 Dizziness and giddiness (principal)
CPT/HCPCS: 80053; 83735; 84443; 84703; 85025; 93005

== ENCOUNTER 2023-02-09 19:45 | Emergency (ER) | payer BC, SELFPAY ==
[2023-02-09] MEDS ORDERED: Ondansetron ODT 4 MG TAB ONE (20:32)
[2023-02-09] MEDS ORDERED: Ibuprofen 200 MG TAB ONE (20:32)
[2023-02-09 21:16] LABS: SARS-CoV-2 NAA Rapid Test Not Detected (NotDetected)
== END 2023-02-09 22:10 | disposition home or self-care (01) ==
LOC: ERS 19:45
DX: J06.9 Acute upper respiratory infection, unspecified (principal)
CPT/HCPCS: 99283; Q0162

== ENCOUNTER 2024-10-04 07:58 | Emergency (ER) | payer OTHER | END 2024-10-04 10:01 | disposition home or self-care (01) | LOC: ERS 07:58 | DX: J06.9 Acute upper respiratory infection, unspecified (principal); B97.89 Other viral agents as the cause of diseases classified elsewhere | CPT/HCPCS: 71045; 87428 ==